=== PATIENT | male | born 1995 | race Caucasian/White ===

== ENCOUNTER 2021-01-04 12:49 | Emergency (ER) | payer OTHER, SELFPAY ==
[2021-01-04 13:00] VITALS: BP 126/73; PULSE 83; RESP 16; TEMP 36.8; O2SAT 100
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
== END 2021-01-04 13:20 | disposition home or self-care (01) ==
PROVIDERS: Emergency Provider Nurse Practitioner Family; PCP Family Medicine
DX: L03.211 Cellulitis of face (principal)
CPT/HCPCS: 99213; G0463

== ENCOUNTER 2022-04-23 10:05 | Emergency (ER) | payer MEDICAID, SELFPAY ==
[2022-04-23 10:12] VITALS: BP 111/68; PULSE 76; RESP 16; TEMP 36.9; O2SAT 98
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
== END 2022-04-23 10:44 | disposition home or self-care (01) ==
PROVIDERS: Emergency Provider Nurse Practitioner
DX: J10.1 Influenza due to other identified influenza virus with other respiratory manifestations (principal); Z20.822 Contact with and (suspected) exposure to COVID-19
CPT/HCPCS: 87426; 87804; 99213; C9803; G0463